=== PATIENT | female | born 1950 ===

== ENCOUNTER 2025-01-20 00:27 | Emergency (ER) | payer MEDICARE ==
[~2025-01-20] VITALS: Ht 152.4 cm; Wt 59.0 kg
[2025-01-20 00:38] VITALS: BP 133/43
[2025-01-20] MEDS ORDERED: TDAP DIPH,PERTUSS,TET VAC/PF 0.5 ML DISP.SYRIN IM ONE (01:16)
[2025-01-20] MEDS ORDERED: CEPH500C2 PO (01:20)
[2025-01-20] MEDS: TDAP DIPH,PERTUSS,TET VAC/PF 0.5 ML DISP.SYRIN IM ONE (01:22)
[2025-01-20 01:30] VITALS: BP 130/49; O2SAT 98
== END 2025-01-20 01:27 | disposition home or self-care (01) ==
LOC: ER 00:30
DX: L08.9 Local infection of the skin and subcutaneous tissue, unspecified (principal); Z88.0 Allergy status to penicillin
CPT/HCPCS: 90715; A4606; A4663

== ENCOUNTER 2025-01-23 01:20 | Emergency (ER) | payer MEDICARE ==
[~2025-01-23 01:20] MED LIST: CEPH500C2 PO
== END 2025-01-23 02:50 | disposition left against medical advice (07) ==
LOC: ER 01:29
DX: Z53.21 Procedure and treatment not carried out due to patient leaving prior to being seen by health care provider (principal)